=== PATIENT | male | born 1955 | race Caucasian/White ===

== ENCOUNTER → 2021-04-02 | Outpatient (CLI) | payer MEDICARE ==
--- NOTE | 2021-04-02 13:37 | MR ---
EXAMINATION TYPE: MR brain wo con DATE OF EXAM: 04/02/2021 1:13 PM COMPARISON: NONE HISTORY: CVA frontal lobe, memory loss, mild dementia FINDINGS: The ventricles, basal cisterns and sulci overlying the cerebral convexities are mildly enlarged. There is evidence of mild periventricular white matter ischemic demyelination. Remote deep white matter insults are also noted. No acute edema is seen on diffusion weighted imaging. There is no evidence for midline shift or mass effect. Acute intracranial hemorrhage or extra-axial collection is not evident. The paranasal sinuses and mastoid air cells are well-aerated. IMPRESSION: Age-related atrophic and chronic small vessel ischemic change. No acute intracranial process at this time.
== END | disposition home or self-care (01) ==
LOC: RADMRIMAIN 11:41
PROVIDERS: ATTEND Psychiatry & Neurology Neurology
DX: I67.82 Cerebral ischemia (principal); G31.9 Degenerative disease of nervous system, unspecified; Z86.73 Personal history of transient ischemic attack (TIA), and cerebral infarction without residual deficits
CPT/HCPCS: 70551

== ENCOUNTER 2022-08-12 15:58 | Inpatient (IN) | payer MEDICARE ==
[2022-08-12] MEDS ORDERED: ACETAMINOPHEN TAB 500 MG TAB PO STA (17:35)
[2022-08-12] MEDS ORDERED: IBUPROFEN 600 MG TAB PO STA (17:35)
--- NOTE | 2022-08-12 18:02 | ED ---
General Adult HPI - General Chief complaint: Altered Mental Status Stated complaint: general malaise Time Seen by Provider: 08/12/22 16:20 Source: patient, EMS, RN notes reviewed, old records reviewed Mode of arrival: EMS Limitations: no limitations - History of Present Illness Initial comments: This is a 66-year-old male with a past medical history significant for Parkinson's disease. Patient recently had some sort of urological procedure secondary to having bladder cancer. He is unable to tell me and there is nobody with the patient to give me any further information. Patient was sent in today because he wasn't feeling well and he was feeling weak and tired. Patient had a fever on arrival. Patient denies any chest pain difficulty breathing or shortness of breath per patient denies any cough. Patient denies abdominal pain patient denies nausea vomiting diarrhea. Patient has no complaint of dysuria hematuria urinary frequency. After a little while to the and though she seemed to be poor historian she did indicate that the patient had a syncopal episode at some point time. - Related Data Home Medications Medication Instructions Recorded Confirmed Levothyroxine Sodium [Synthroid] 75 mcg PO AC-BRKFST 08/12/22 08/12/22 Oxybutynin Chloride [Ditropan XL] 10 mg PO DAILY 08/12/22 08/12/22 Propranolol [Inderal] 40 mg PO BID 08/12/22 08/12/22 Simvastatin [Zocor] 40 mg PO HS 08/12/22 08/12/22 Tamsulosin HCl [Flomax] 0.4 mg PO HS 08/12/22 08/12/22 Trihexyphenidyl [Artane] 2 mg PO BID 08/12/22 08/12/22 Valbenazine Tosylate [Ingrezza] 40 mg PO DAILY 08/12/22 08/12/22 traMADol HCL 50 mg PO BID PRN 08/12/22 08/12/22 Allergies Allergy/AdvReac Type Severity Reaction Status Date / Time quetiapine fumarate AdvReac Confusion Verified 08/12/22 19:00 [From Seroquel] Review of Systems ROS Statement: Those systems with pertinent positive or pertinent negative responses have been documented in the HPI. ROS Other: All systems not noted in ROS Statement are negative. Past Medical History Past Medical History: Cancer, Hypertension, Osteoarthritis (OA), Thyroid Disorder Additional Past Medical History / Comment(s): familial tremors; Traumatic Brain Injury with chronic headaches, tinnitus, difficulty with balance and concentration; Suicide Attempt, PROSTATE CANCER History of Any Multi-Drug Resistant Organisms: None Reported Past Surgical History: Appendectomy, Hernia Repair, Orthopedic Surgery, Tonsillectomy Additional Past Surgical History / Comment(s): Vasectomy Past Anesthesia/Blood Transfusion Reactions: No Reported Reaction Past Psychological History: Anxiety, Bipolar, Depression Smoking Status: Never smoker Past Alcohol Use History: None Reported Past Drug Use History: None Reported - Past Family History Mother Family Medical History: Cancer Additional Family Medical History / Comment(s): bladder, suicide attempt. She at age 67 Father Family Medical History: CVA/TIA, Diabetes Mellitus, Hypertension Additional Family Medical History / Comment(s): stroke Brother(s) Additional Family Medical History / Comment(s): Patient has one brother with history of alcohol abuse. He has 1 brother that is from alcohol abuse. And one brother hung himself. Sister(s) Additional Family Medical History / Comment(s): He has 5 sisters. One sister with coronary artery disease. One or 2 have attempted suicide. Daughter(s) Additional Family Medical History / Comment(s): One daughter with bipolar disorder she is 30 years old. Son(s) Additional Family Medical History / Comment(s): One son that is 28 years old with bipolar disorder. General Exam - General Exam Comments Initial Comments: GENERAL: Patient is well-developed and well-nourished. Patient is nontoxic and well- hydrated and is in mild distress. ENT: Neck is soft and supple. No significant lymphadenopathy is noted. Oropharynx is clear. Moist mucous membranes. Neck has full range of motion without eliciting any pain. EYES: The sclera were anicteric and conjunctiva were pink and moist. Extraocular movements were intact and pupils were equal round and reactive to light. Eyelids were unremarkable. PULMONARY: Unlabored respirations. Good breath sounds bilaterally. No audible rales rh onchi or wheezing was noted. CARDIOVASCULAR: There is a regular rate and rhythm without any murmurs gallops or rubs. ABDOMEN: Soft and nontender with normal bowel sounds. SKIN: Skin is clear with no lesions or rashes and otherwise unremarkable. NEUROLOGIC: Patient is alert and oriented 2. Cranial nerves II through XII are grossly intact. Motor and sensory are also intact. Normal speech, volume and content. Symmetrical smile. MUSCULOSKELETAL: Normal extremities with adequate strength and full range of motion. No lower extremity swelling or edema. No calf tenderness. LYMPHATICS: No significant lymphadenopathy is noted PSYCHIATRIC: Normal psychiatric evaluation. Limitations: no limitations Course Vital Signs 08/12/22 08/12/22 08/12/22 16:20 16:25 16:30 Temperature 100.7 F H Pulse Rate 64 60 Respiratory 20 25 H 25 H Rate Blood Pressure 128/95 O2 Sat by Pulse 96 96 Oximetry 08/12/22 08/12/22 08/12/22 17:00 17:30 18:00 Temperature Pulse Rate 62 71 60 Respiratory 24 18 24 Rate Blood Pressure 125/108 117/68 97/70 O2 Sat by Pulse 96 98 96 Oximetry 08/12/22 08/12/22 08/12/22 18:30 19:00 19:30 Temperature Pulse Rate 55 L 55 L 57 L Respiratory 24 19 21 Rate Blood Pressure 114/73 112/82 115/86 O2 Sat by Pulse 96 97 97 Oximetry 08/12/22 20:00 Temperature 99.2 F Pulse Rate 60 Respiratory 19 Rate Blood Pressure 121/67 O2 Sat by Pulse 95 Oximetry Medical Decision Making - Medical Decision Making EKG was interpreted by myself EKG shows a sinus rhythm at 64 bpm UT interval 262 QRS is 89 QT interval 460 QTC is 416. EKG shows no ST segment elevation or depression Was pt. sent in by a medical professional or institution (, PA, BOX PRESS OPERATOR, urgent care, hospital, or penitentiary...) When possible be specific @ -No Did you speak to anyone other than the patient for history (EMS, parent, family, police, friend...)? What history was obtained from this source @ -History part of the history Did you review nursing and triage notes (agree or disagree)? Why? @ -I reviewed and agree with nursing and triage notes Were old charts reviewed (outside hosp., previous admission, EMS record, old EKG, old radiological studies, urgent care reports/EKG's, penitentiary records)? Report findings @ -I reviewed prior labs and charts. Differential Diagnosis (chest pain, altered mental status, abdominal pain women, abdominal pain men, vaginal bleeding, weakness, fever, dyspnea, syncope, headache, dizziness, GI bleed, back pain, seizure, CVA, palpatations, mental health, musculoskeletal)? @ -Differential Fever: Pneumonia, viral URI, endocarditis, myocarditis, pericarditis, otitis, sinusitis, peritonsillar Abscess, retropharyngeal Abscess, epiglottitis, p eritonitis, appendicitis, Connie cystitis, diverticulitis, hepatitis, colitis, UTI, PID, TOA, pyelonephritis, prostatitis, epididymitis, meningitis, encephalitis, pulmonary embolism, CVA, thyroid storm, pancreatitis, adrenal crisis, cavernous sinus thrombosis, this is not meant to be an all-inclusive list. EKG interpreted by me (3pts min.). @ -As above X-rays interpreted by me (1pt min.). @ -Chest x-rays interpreted by myself as no acute abnormality. CT interpreted by me (1pt min.). @ -None done U/S interpreted by me (1pt. min.). @ -None done What testing was considered but not performed or refused? (CT, X-rays, U/S, labs)? Why? @ -None What meds were considered but not given or refused? Why? @ -None Did you discuss the management of the patient with other professionals (professionals i.e. , PA, BOX PRESS OPERATOR, lab, RT, psych nurse, social and political studies professor, box lining machine operator, teacher, seaman officer, immigration case manager)? Give summary @ -Poke with Dr. Alfred about the case and he agreed to admit the patient Was smoking cessation discussed for >3mins.? @ -No Was critical care preformed (if so, how long)? @ -No Were there social determinants of health that impacted care today? How? (Homelessness, low income, unemployed, alcoholism, drug addiction, transportation, low edu. Level, literacy, decrease access to med. care, long-term, rehab)? @ -No Was there de-escalation of care discussed even if they declined (Discuss DNR or withdrawal of care, Hospice)? DNR status @ -No What co-morbidities impacted this encounter? (DM, HTN, Smoking, COPD, CAD, Cancer, CVA, ARF, Chemo, Hep., AIDS, mental health diagnosis, sleep apnea, morbid obesity)? @ -None Was patient admitted / discharged? Hospital course, mention meds given and route, prescriptions, significant lab abnormalities, going to OR and other pertinent info. @ -On patient's arrival he stated he just felt weak his mentioned that he may have had an episode of syncope needs were very good historian and there was no one else gets any further history. Patient gave Motrin, for the fever. Patient appeared to have some white cells in the urine Undiagnosed new problem with uncertain prognosis? @ -No Drug Therapy requiring intensive monitoring for toxicity (Heparin, Nitro, Insulin, Cardizem)? @ -No Were any procedures done? @ -No Diagnosis/symptom? @ -Syncope Acute, or Chronic, or Acute on Chronic? @ -Acute Uncomplicated (without systemic symptoms) or Complicated (systemic symptoms)? @ -Complicated Side effects of treatment? @ -No Exacerbation, Progression, or Severe Exacerbation? @ -No Poses a threat to life or bodily function? How? (Chest pain, [place], CA, pneumonia, PE, COPD, DKA, ARF, appy, cholecystitis, CVA, Diverticulitis, Homicidal, Suicidal, threat to staff... and all critical care pts) @ -No Diagnosis/symptom? @ -Urinary tract infection Acute, or Chronic, or Acute on Chronic? @ -Acute Uncomplicated (without systemic symptoms) or Complicated (systemic symptoms)? @ -Complicated Side effects of treatment? @ -none Exacerbation, Progression, or Severe Exacerbation] @ -no Poses a threat to life or bodily function? @ -no - Lab Data Result diagrams: 08/12/22 18:12 08/12/22 18:12 Lab Results 08/12/22 08/12/22 08/12/22 Range/Units 18:12 18:12 18:12 WBC 8.5 (3.8-10.6) k/uL RBC 5.02 (4.30-5.90) m/uL Hgb 15.6 (13.0-17.5) gm/dL Hct 43.2 (39.0-53.0) % MCV 86.1 (80.0-100.0) fL MCH 31.1 (25.0-35.0) pg MCHC 36.0 (31.0-37.0) g/dL RDW 13.5 (11.5-15.5) % Plt Count 119 L (150-450) k/uL MPV 7.8 Neutrophils % 78 % Lymphocytes % 8 % Monocytes % 8 % Eosinophils % 4 % Basophils % 0 % Neutrophils # 6.5 (1.3-7.7) k/uL Lymphocytes # 0.6 L (1.0-4.8) k/uL Monocytes # 0.7 (0-1.0) k/uL Eosinophils # 0.4 (0-0.7) k/uL Basophils # 0.0 (0-0.2) k/uL Hyperchromasia Slight PT 11.2 (9.0-12.0) sec INR 1.1 (<1.2) APTT 20.1 L (22.0-30.0) sec Sodium (137-145) mmol/L Potassium (3.5-5.1) mmol/L Chloride (98-107) mmol/L Carbon Dioxide (22-30) mmol/L Anion Gap mmol/L BUN (9-20) mg/dL Creatinine (0.66-1.25) mg/dL Est GFR (CKD-EPI)AfAm (>60 ml/min/1.73 sqM) Est GFR (CKD-EPI)NonAf (>60 ml/min/1.73 sqM) Glucose (74-99) mg/dL Plasma Lactic Acid Marc (0.7-2.0) mmol/L Calcium (8.4-10.2) mg/dL Total Bilirubin (0.2-1.3) mg/dL AST (17-59) U/L ALT (4-49) U/L Alkaline Phosphatase (38-126) U/L Total Protein (6.3-8.2) g/dL Albumin (3.5-5.0) g/dL Urine Color Yellow Urine Appearance Clear (Clear) Urine pH 5.5 (5.0-8.0) Ur Specific Coy 1.023 (1.001-1.035) Urine Protein 1+ H (Negative) Urine Glucose (UA) Negative (Negative) Urine Ketones Trace H (Negative) Urine Blood Small H (Negative) Urine Nitrite Negative (Negative) Urine Bilirubin Negative (Negative) Urine Urobilinogen <2.0 (<2.0) mg/dL Ur Leukocyte Esterase Moderate H (Negative) Urine RBC 20 H (0-5) /hpf Urine WBC 23 H (0-5) /hpf Ur Squamous Epith Cells <1 (0-4) /hpf Urine Bacteria Rare H (None) /hpf Hyaline Casts 1 (0-2) /lpf Urine Mucus Many H (None) /hpf Influenza Type A (PCR) (Not Detectd) Influenza Type B (PCR) (Not Detectd) RSV (PCR) (Not Detectd) SARS-CoV-2 (PCR) (Not Detectd) 08/12/22 08/12/22 08/12/22 Range/Units 18:12 18:12 19:39 WBC (3.8-10.6) k/uL RBC (4.30-5.90) m/uL Hgb (13.0-17.5) gm/dL Hct (39.0-53.0) % MCV (80.0-100.0) fL MCH (25.0-35.0) pg MCHC (31.0-37.0) g/dL RDW (11.5-15.5) % Plt Count (150-450) k/uL MPV Neutrophils % % Lymphocytes % % Monocytes % % Eosinophils % % Basophils % % Neutrophils # (1.3-7.7) k/uL Lymphocytes # (1.0-4.8) k/uL Monocytes # (0-1.0) k/uL Eosinophils # (0-0.7) k/uL Basophils # (0-0.2) k/uL Hyperchromasia PT (9.0-12.0) sec INR (<1.2) APTT (22.0-30.0) sec Sodium 136 L (137-145) mmol/L Potassium 3.9 (3.5-5.1) mmol/L Chloride 106 (98-107) mmol/L Carbon Dioxide 24 (22-30) mmol/L Anion Gap 6 mmol/L BUN 18 (9-20) mg/dL Creatinine 0.99 (0.66-1.25) mg/dL Est GFR (CKD-EPI)AfAm >90 (>60 ml/min/1.73 sqM) Est GFR (CKD-EPI)NonAf 78 (>60 ml/min/1.73 sqM) Glucose 114 H (74-99) mg/dL Plasma Lactic Acid Marc 0.9 (0.7-2.0) mmol/L Calcium 8.1 L (8.4-10.2) mg/dL Total Bilirubin 2.6 H (0.2-1.3) mg/dL AST 17 (17-59) U/L ALT 24 (4-49) U/L Alkaline Phosphatase 87 (38-126) U/L Total Protein 5.8 L (6.3-8.2) g/dL Albumin 3.4 L (3.5-5.0) g/dL Urine Color Urine Appearance (Clear) Urine pH (5.0-8.0) Ur Specific Coy (1.001-1.035) Urine Protein (Negative) Urine Glucose (UA) (Negative) Urine Ketones (Negative) Urine Blood (Negative) Urine Nitrite (Negative) Urine Bilirubin (Negative) Urine Urobilinogen (<2.0) mg/dL Ur Leukocyte Esterase (Negative) Urine RBC (0-5) /hpf Urine WBC (0-5) /hpf Ur Squamous Epith Cells (0-4) /hpf Urine Bacteria (None) /hpf Hyaline Casts (0-2) /lpf Urine Mucus (None) /hpf Influenza Type A (PCR) Not Detected (Not Detectd) Influenza Type B (PCR) Not Detected (Not Detectd) RSV (PCR) Not Detected (Not Detectd) SARS-CoV-2 (PCR) Not Detected (Not Detectd) Disposition Clinical Impression: Syncope, Urinary tract infection Disposition: ADMITTED IP TO THIS [facility] Referrals: Cuauhtemoc Harmon MD [Primary Care Provider] - 1-2 days Time of Disposition: 20:55
[2022-08-12 18:27] LABS: Appearance,Urine Clear (Clear); Bacteria,Urine Rare /hpf; Bilirubin,Urine Negative (Negative); Blood,Urine Small (Negative); Color,Urine Yellow; Glucose,Urine (UA) Negative (Negative); Hyaline Casts,Urine 1 /lpf (0-2); Ketones,Urine Trace (Negative); Leukocyte Esterase,Urine Moderate (Negative); Mucus,Urine Many /hpf; Nitrite,Urine Negative (Negative); PH, Urine 5.5 (5.0-8.0); Protein,Urine 1+ (Negative); RBC,Urine 20 /hpf (0-5); Specific Gravity,Urine 1.023 (1.001-1.035); Squamous Epithelial Cell,Urine <1 /hpf (0-4); Urobilinogen,Urine <2.0 mg/dL (<2.0); WBC,Urine 23 /hpf (0-5)
[2022-08-12 18:34] LABS: ALT 24 U/L (4-49); AST 17 U/L (17-59); African American GFR (CKD) >90 (>60 ml/min/1.73 sqM); Albumin 3.4 g/dL (3.5-5.0); Alkaline Phosphatase 87 U/L (38-126); Anion Gap 6 mmol/L; Basophils % (A) 0 %; Blood Urea Nitrogen 18 mg/dL (9-20); Calcium 8.1 mg/dL (8.4-10.2); Carbon Dioxide 24 mmol/L (22-30); Chloride 106 mmol/L (98-107); Eosinophils # (A) 0.4 k/uL (0-0.7); Eosinophils % (A) 4 %; Glucose 114 mg/dL (74-99); HCT 43.2 % (39.0-53.0); HGB 15.6 gm/dL (13.0-17.5); Hyperchromasia Slight; Lymphocytes # (A) 0.6 k/uL (1.0-4.8); Lymphocytes % (A) 8 %; MCH 31.1 pg (25.0-35.0); MCV 86.1 fL (80.0-100.0); Mean Platelet Volume 7.8; Monocytes # (A) 0.7 k/uL (0-1.0); Monocytes % (A) 8 %; Neutrophils # (A) 6.5 k/uL (1.3-7.7); Neutrophils % (A) 78 %; Non-African American GFR(CKD) 78 (>60 ml/min/1.73 sqM); Platelet Count 119 k/uL (150-450); Potassium 3.9 mmol/L (3.5-5.1); RBC 5.02 m/uL (4.30-5.90); RDW 13.5 % (11.5-15.5); Sodium 136 mmol/L (137-145); Total Bilirubin 2.6 mg/dL (0.2-1.3); Total Protein 5.8 g/dL (6.3-8.2); WBC 8.5 k/uL (3.8-10.6)
[2022-08-12 18:36] LABS: INR 1.1 (<1.2); Prothrombin Time 11.2 sec (9.0-12.0)
[2022-08-12 18:39] LABS: Partial Thromboplastin Time 20.1 sec (22.0-30.0)
--- NOTE | 2022-08-12 19:33 | XR ---
EXAMINATION: XR chest 2V: 08/12/2022 6:27 PM CLINICAL INDICATION: Fever TECHNIQUE: 3 views COMPARISON: Made to 10 FINDINGS: The lungs are clear. The pleural spaces are negative. The cardiac silhouette is not enlarged. The remainder of the mediastinal silhouette is unremarkable. The skeletal structures and soft tissues are negative for acute findings. IMPRESSION: No acute radiographic process.
[2022-08-12] MEDS: SODIUM CHLORIDE 0.9% 500 ML 500 ML IV SCH ×3 (19:57→23:08)
[2022-08-12] MEDS ORDERED: SODIUM CHLORIDE 0.9% 1,000 ML IV ONE (20:58)
[2022-08-13] MEDS ORDERED: traMADol 50 MG TAB PO PRN (09:16)
[2022-08-13] MEDS: Valbenazine Tosylate [Ingrezza] 40 MG Capsule PO SCH (09:28)
[2022-08-13] MEDS: PROPRANOLOL 40 MG TAB PO SCH ×2 (09:39→19:36)
[2022-08-13] MEDS: LEVOTHYROXINE 75 MCG TAB PO SCH (09:42)
[2022-08-13] MEDS: OXYBUTYNIN 10 MG TAB.ER.24 PO SCH (09:43)
[2022-08-13] MEDS: TRIHEXYPHENIDYL 2 MG TAB PO SCH ×2 (09:43→19:59)
--- NOTE | 2022-08-13 11:57 | P.CNNES ---
History of Present Illness Consult date: 08/13/22 Requesting physician: Dawit Lott Reason for Consult: syncope History of Present Illness: This is a 66-year-old gentleman with history of Parkinson's who presented to the emergency department because of passing out episode. Patient does not recall the event and does not know what transpired. He denies any bowel incontinence or tongue bite. Per the ED team is seems the patient had some sort of urological procedures admitted to having bladder cancer according to ED note. He also felt the patient is a poor historian. He indicated to them that he passed out after some time. He denies any history of seizure. He states that he follows up with a neurologist Dr. English campbell at [facility] for his Parkinson's and he said that he was a had significant tremor for the past 1 year and he thinks he had the tremor for more than a year but unsure exactly. He cannot tell me the medication that he is on for the Parkinson's and upon reviewing the EMR is the only thing I can see is that he is on propanolol and I'm not sure if it's because of his blood pressure or they felt was a tremor essential. It does not seem he is on Sinemet and patient is not aware if he was on it in past or not. According to the patient's nurse his heart rate has been in the 30s. So she is holding the propanolol Some of the workup during his hospital visit consisted of: Heart Rate has been running between the 30s and 40s White blood cell has been within the normal limits. AST ALT is within normal limits as well as BUN/creatinine. The sodium was 136, serum glucose 114. Urinalysis is seems possible suggestive of underlying urinary tract infection EKG is reported as sinus rhythm with sinus arrhythmia. Normal EKG. Review of Systems Review of system: The 12 point system was reviewed and apparent positive and negative per HPI. Past Medical History Past Medical History: Cancer, Hypertension, Osteoarthritis (OA), Thyroid Disorder Additional Past Medical History / Comment(s): familial tremors; Traumatic Brain Injury with chronic headaches, tinnitus, difficulty with balance and concentration; Suicide Attempt, PROSTATE CANCER History of Any Multi-Drug Resistant Organisms: None Reported Past Surgical History: Appendectomy, Hernia Repair, Orthopedic Surgery, T onsillectomy Additional Past Surgical History / Comment(s): Vasectomy Past Anesthesia/Blood Transfusion Reactions: No Reported Reaction Past Psychological History: Anxiety, Bipolar, Depression Smoking Status: Never smoker Past Alcohol Use History: None Reported Past Drug Use History: None Reported - Past Family History Mother Family Medical History: Cancer Additional Family Medical History / Comment(s): bladder, suicide attempt. She at age 67 Father Family Medical History: CVA/TIA, Diabetes Mellitus, Hypertension Additional Family Medical History / Comment(s): stroke Brother(s) Additional Family Medical History / Comment(s): Patient has one brother with history of alcohol abuse. He has 1 brother that is from alcohol abuse. And one brother hung himself. Sister(s) Additional Family Medical History / Comment(s): He has 5 sisters. One sister with coronary artery disease. One or 2 have attempted suicide. Daughter(s) Additional Family Medical History / Comment(s): One daughter with bipolar disord er she is 30 years old. Son(s) Additional Family Medical History / Comment(s): One son that is 28 years old with bipolar disorder. Medications and Allergies Home Medications Medication Instructions Recorded Confirmed Type Levothyroxine Sodium [Synthroid] 75 mcg PO AC-BRKFST 08/12/22 08/12/22 History Oxybutynin Chloride [Ditropan XL] 10 mg PO DAILY 08/12/22 08/12/22 History Propranolol [Inderal] 40 mg PO BID 08/12/22 08/12/22 History Simvastatin [Zocor] 40 mg PO HS 08/12/22 08/12/22 History Tamsulosin HCl [Flomax] 0.4 mg PO HS 08/12/22 08/12/22 History Trihexyphenidyl [Artane] 2 mg PO BID 08/12/22 08/12/22 History Valbenazine Tosylate [Ingrezza] 40 mg PO DAILY 08/12/22 08/12/22 History traMADol HCL 50 mg PO BID PRN 08/12/22 08/12/22 History Allergies Allergy/AdvReac Type Severity Reaction Status Date / Time quetiapine fumarate AdvReac Confusion Verified 08/12/22 19:00 [From Seroquel] Physical Examination - Vital Signs Vital Signs: Vital Signs Temp Pulse Pulse Resp BP BP Pulse Ox 08/13/22 09:30 35 L 123/69 08/13/22 08:00 96.8 F L 40 L 16 79/60 98 08/13/22 03:48 41 L 18 121/63 96 08/13/22 00:00 97.6 F 43 L 16 125/103 98 08/12/22 20:00 99.2 F 60 19 121/67 95 08/12/22 19:30 57 L 21 115/86 97 08/12/22 19:00 55 L 19 112/82 97 08/12/22 18:30 55 L 24 114/73 96 08/12/22 18:00 60 24 97/70 96 08/12/22 17:30 71 18 117/68 98 08/12/22 17:00 62 24 125/108 96 08/12/22 16:30 60 25 H 128/95 96 08/12/22 16:25 25 H 08/12/22 16:20 100.7 F H 64 20 96 Intake and Output 08/12/22 08/13/22 08/13/22 22:59 06:59 14:59 Intake Total 50 Output Total 500 250 Balance -500 -200 Intake: Intake, IV Titration 50 Amount cefTRIAXone 2 gm In 50 Sodium Chloride 0.9% 50 ml @ 100 mls/hr IVPB Q24HR [facility] Rx#:[id number] Output: Urine 500 250 Other: Voiding Method Urinal Urinal # Voids 1 Weight 85.729 kg GENERAL: The patient is lying in bed and is not in acute distress. CHEST: The heart rate is regular rate rhythm. No murmurs to auscultation. LUNG: Clear to auscultation bilaterally no wheezing noted throughout. Not labored breathing. ABDOMEN/GI: Bowel sounds present in all 4 quadrants. No tenderness to palpation throughout. NEUROLOGICAL: Higher mental function: The patient is awake, alert, oriented to self, place and time. Patient is following commands. No aphasia and no neglect. Cranial nerves: The pupils are round, equal and reactive to light and accommodation. Visual kirby are full to confrontation throughout. Extraocular movement is intact no nystagmus is noted. Facial sensation is normal to touch throughout. The facial strength is normal throughout. Hearing is normal bilaterally to hand rub. Tongue is midline and moved [id number] without any difficulty. No dysarthria is noted. Shoulder shrug is normal bilaterally. Motor: The strength is 5 over 5 throughout. Has resting tremor of bilateral uppers. Cerebellum: Normal finger to nose heel to chin bilaterally. Sensation: Sensation is normal to touch throughout. Reflexes (right/left): 1+ throughout. Plantars are mute bilaterally. Results - Laboratory Findings CBC and BMP: 08/12/22 18:12 08/12/22 18:12 Abnormal Lab Findings: Abnormal Labs 08/12/22 08/12/22 08/12/22 18:12 18:12 18:12 Plt Count 119 L Lymphocytes # 0.6 L APTT 20.1 L Sodium Glucose Calcium Total Bilirubin Total Protein Albumin Urine Protein 1+ H Urine Ketones Trace H Urine Blood Small H Ur Leukocyte Esterase Moderate H Urine RBC 20 H Urine WBC 23 H Urine Bacteria Rare H Urine Mucus Many H 08/12/22 18:12 Plt Count Lymphocytes # APTT Sodium 136 L Glucose 114 H Calcium 8.1 L Total Bilirubin 2.6 H Total Protein 5.8 L Albumin 3.4 L Urine Protein Urine Ketones Urine Blood Ur Leukocyte Esterase Urine RBC Urine WBC Urine Bacteria Urine Mucus Assessment and Plan Assessment: Syncopal episode (reported to ED) and appears due to medication induced cause b radycardia (in 30's). Is on Propranolol. Parkinson's disease Possible acute UTI History prostate cancer History of bladder cancer who had recent procedure Plan: I ordered a CT of the brain, routine EEG, orthostatic vitals.. Also ordered 2D echo. Agree of holding Propranolol and consider cardiology consult. I am not sure why patient is not on Sinemet or other medication for Parkinson's. I will attempt to find this out from patient's family members. Consulted the physical therapy and occupation therapy Defer the rest of the medical management to primary team Plan discussed with the patient nurse Thank you for the consultation Time with Patient: Greater than 30
--- NOTE | 2022-08-13 12:15 | CT ---
EXAMINATION TYPE: CT brain wo con CT DLP: 1159.4 mGycm, Automated exposure control for dose reduction was used. DATE OF EXAM: 08/13/2022 12:08 PM COMPARISON: CT brain 11/30/2018 CLINICAL INDICATION:Male, 66 years old with history of syncope, TECHNIQUE: Brain: Multiple axial CT images of the brain were obtained without IV contrast. Coronal and sagittal reformats reviewed. FINDINGS: Brain: Extra-axial spaces: No abnormal extra-axial fluid collections. Ventricular system: Within normal limits Cerebral parenchyma: Cerebral atrophy. No acute intraparenchymal hemorrhage or mass effect. The diop -white junction is well differentiated. Cerebellum: Unremarkable. Mass effect: No evidence of midline shift. Intracranial vasculature: unremarkable Soft tissues: Normal. Calvarium/osseous structures: No depressed skull fracture. Paranasal sinuses and mastoid air cells: Clear Visualized orbits: Orbital contents are intact. IMPRESSION: No acute intracranial process.
[2022-08-13] MEDS ORDERED: ACETAMINOPHEN TAB 500 MG TAB PO PRN (19:25)
[2022-08-13] MEDS: SODIUM CHLORIDE 0.9% 1,000 ML IV SCH (19:31)
[2022-08-13] MEDS: TAMSULOSIN 0.4 MG CAP.ER.24H PO SCH (19:59)
[2022-08-13] MEDS: ATORVASTATIN 20 MG TAB PO SCH (19:59)
--- NOTE | 2022-08-13 21:41 | P.HPIM ---
History of Present Illness H&P Date: 08/13/22 Chief Complaint: Weak and tired This is a pleasant 66-year-old patient, follows with Dr. Cuauhtemoc Harmon. Chronic stable medical conditions include hypertension, osteoporosis, hypothyroid, familial tremors, traumatic brain injury with chronic headaches, tinnitus, prostate cancer. Bipolar. Patient does not exactly remember why he is here. Please hold for to answer other questions. He can only tell in the ER that he was not feeling well. Tired. About a week ago he had cystoscopy and bladder cancer was removed. He is not sure how much. He was able to make urine on his own. Able to get around the house on his own. His appetite has been down. Feeling tired. Lives with his . Could not think of any obvious urine symptoms. He is not very clear about his answers. Review of systems: GEN.: Tired EYES: None HEENT: None NECK: None RESPIRATORY: None CARDIOVASCULAR: None GASTROINTESTINAL: None GENITOURINARY: None MUSCULOSKELETAL: None LYMPHATICS: None HEMATOLOGICAL: None PSYCHIATRY: Anxious NEUROLOGICAL: Tremors] Past medical history to include: Hypertension, osteoporosis, hypothyroid, familial tremors, traumatic brain injury with chronic headaches, tinnitus, prostate versus bladder cancer, bipolar Social history: Lives with his . No smoking or alcohol. Physical examination: VITAL SIGNS: T-max today 103, 75, 20, 120/62, 92% room air GENERAL: BMI 29.6, laying in bed slightly anxious. EYES: Pupils equal. Conjunctiva normal. HEENT: External appearance of nose and ears normal, oral cavity grossly normal. NECK: JVD not raised; masses not palpable. HEART: First and second heart sounds are normal; no edema. LUNGS: Respiratory rate normal; clear to auscultation. ABDOMEN: Soft, nontender, liver spleen not palpable, no masses palpable. PSYCH: Alert and oriented x3; mood and affect anxious, get lipidl. MUSCULOSKELETAL:No Clubbing/cyanosis;muscles-grossly intact NEUROLOGICAL: Cranial nerves grossly intact; no facial asymmetry, power and sensation grossly intact. Tremors LYMPHATICS: No lymph nodes palpable in the axilla and neck INVESTIGATIONS, reviewed in the clinical context: White count 8.5 hemoglobin 15.6 platelets 119 sodium 136 potassium 3.9 creatinine 0.99 lactic acid 0.9 UA: [place] as moderate, WBC 23, bacteria rare Influenza type [id number]-19: Noninjected CT brain: Atrophy EKG tracing personally reviewed by me-normal sinus rhythm Chest x-ray film personally reviewed by me-no infiltrates Assessment and plan: -Sepsis from underlying UTI causing delirium, high fever. Patient had a cystoscopy about a week ago. IV ceftriaxone. Urine culture ordered. Blood culture pending. -Acute UTI with cystitis causing sepsis from recent cystoscopy IV ceftriaxone -Familial tremor Propranolol 40 mg twice a day -BPH Flomax, Ditropan XL -Acute delirium from sepsis on presentation -Hypothyroid Synthroid 75 -Hyperlipidemia Zocor 40 mg -DO NOT RESUSCITATE Discussed with patient. No family at the bedside. - Past Medical History Past Medical History: Cancer, Hypertension, Osteoarthritis (OA), Thyroid Disorder Additional Past Medical History / Comment(s): familial tremors; Traumatic Brain Injury with chronic headaches, tinnitus, difficulty with balance and concentration; Suicide Attempt, PROSTATE CANCER History of Any Multi-Drug Resistant Organisms: None Reported Past Surgical History: Appendectomy, Hernia Repair, Orthopedic Surgery, Tonsillectomy Additional Past Surgical History / Comment(s): Vasectomy Past Anesthesia/Blood Transfusion Reactions: No Reported Reaction Past Psychological History: Anxiety, Bipolar, Depression Smoking Status: Never smoker Past Alcohol Use History: None Reported Past Drug Use History: None Reported - Past Family History Mother Family Medical History: Cancer Additional Family Medical History / Comment(s): bladder, suicide attempt. She at age 67 Father Family Medical History: CVA/TIA, Diabetes Mellitus, Hypertension Additional Family Medical History / Comment(s): stroke Brother(s) Additional Family Medical History / Comment(s): Patient has one brother with history of alcohol abuse. He has 1 brother that is from alcohol abuse. And one brother hung himself. Sister(s) Additional Family Medical History / Comment(s): He has 5 sisters. One sister with coronary artery disease. One or 2 have attempted suicide. Daughter(s) Additional Family Medical History / Comment(s): One daughter with bipolar disorder she is 30 years old. Son(s) Additional Family Medical History / Comment(s): One son that is 28 years old wit h bipolar disorder. Medications and Allergies Home Medications Medication Instructions Recorded Confirmed Type Levothyroxine Sodium [Synthroid] 75 mcg PO AC-BRKFST 08/12/22 08/12/22 History Oxybutynin Chloride [Ditropan XL] 10 mg PO DAILY 08/12/22 08/12/22 History Propranolol [Inderal] 40 mg PO BID 08/12/22 08/12/22 History Simvastatin [Zocor] 40 mg PO HS 08/12/22 08/12/22 History Tamsulosin HCl [Flomax] 0.4 mg PO HS 08/12/22 08/12/22 History Trihexyphenidyl [Artane] 2 mg PO BID 08/12/22 08/12/22 History Valbenazine Tosylate [Ingrezza] 40 mg PO DAILY 08/12/22 08/12/22 History traMADol HCL 50 mg PO BID PRN 08/12/22 08/12/22 History Allergies Allergy/AdvReac Type Severity Reaction Status Date / Time quetiapine fumarate AdvReac Confusion Verified 08/12/22 19:00 [From Seroquel] Physical Exam Vitals: Vital Signs Temp Pulse Pulse Resp BP BP Pulse Ox 08/13/22 03:48 41 L 18 121/63 96 08/13/22 00:00 97.6 F 43 L 16 125/103 98 08/12/22 20:00 99.2 F 60 19 121/67 95 08/12/22 19:30 57 L 21 115/86 97 08/12/22 19:00 55 L 19 112/82 97 08/12/22 18:30 55 L 24 114/73 96 08/12/22 18:00 60 24 97/70 96 08/12/22 17:30 71 18 117/68 98 08/12/22 17:00 62 24 125/108 96 08/12/22 16:30 60 25 H 128/95 96 08/12/22 16:25 25 H 08/12/22 16:20 100.7 F H 64 20 96 Intake and Output 08/12/22 08/13/22 08/13/22 22:59 06:59 14:59 Output Total 500 Balance -500 Output: Urine 500 Other: Voiding Method Urinal Weight 85.729 kg Results CBC & Chem 7: 08/12/22 18:12 08/12/22 18:12 Labs: Abnormal Lab Results - Last 24 Hours (Table) 08/12/22 08/12/22 08/12/22 Range/Units 18:12 18:12 18:12 Plt Count 119 L (150-450) k/uL Lymphocytes # 0.6 L (1.0-4.8) k/uL APTT 20.1 L (22.0-30.0) sec Sodium (137-145) mmol/L Glucose (74-99) mg/dL Calcium (8.4-10.2) mg/dL Total Bilirubin (0.2-1.3) mg/dL Total Protein (6.3-8.2) g/dL Albumin (3.5-5.0) g/dL Urine Protein 1+ H (Negative) Urine Ketones Trace H (Negative) Urine Blood Small H (Negative) Ur Leukocyte Esterase Moderate H (Negative) Urine RBC 20 H (0-5) /hpf Urine WBC 23 H (0-5) /hpf Urine Bacteria Rare H (None) /hpf Urine Mucus Many H (None) /hpf 08/12/22 Range/Units 18:12 Plt Count (150-450) k/uL Lymphocytes # (1.0-4.8) k/uL APTT (22.0-30.0) sec Sodium 136 L (137-145) mmol/L Glucose 114 H (74-99) mg/dL Calcium 8.1 L (8.4-10.2) mg/dL Total Bilirubin 2.6 H (0.2-1.3) mg/dL Total Protein 5.8 L (6.3-8.2) g/dL Albumin 3.4 L (3.5-5.0) g/dL Urine Protein (Negative) Urine Ketones (Negative) Urine Blood (Negative) Ur Leukocyte Esterase (Negative) Urine RBC (0-5) /hpf Urine WBC (0-5) /hpf Urine Bacteria (None) /hpf Urine Mucus (None) /hpf
--- NOTE | 2022-08-13 22:56 | EEG ---
ELECTROENCEPHALOGRAM REPORT CLINICAL HISTORY: This is a 66-year-old gentleman with a syncopal episode at home. The video EEG is obtained to evaluate for seizure epileptiform activity. RELEVANT MEDICATIONS: The patient is not on any anti-seizure medication. EEG TYPE: This is a routine 21-channel EEG is performed with video using the 10/20 electrode placement system. DESCRIPTION: Wakefulness is only obtained. During awake state, the posterior-dominant rhythm consists of [id number] voltage of 7-8 hertz activity that is well modulated and well sustained. There is no physiological stage 2 sleep architecture. There is no focal slowing. Interictal and ictal is none. ACTIVATION PROCEDURE: Photic stimulation did not evoke a posterior driving response. There is no abnormality during the photic stimulation. Hyperventilation is not performed. CLINICAL INTERPRETATION: This is an abnormal routine EEG. The background slowing is suggestive of mild encephalopathy. Otherwise, there is no focal slowing, epileptiform discharge, or seizure on the EEG. Clinical correlation is recommended. MMYASIR / BETHN: [id number] /
[2022-08-13 23:59] LABS: Appearance,Urine Clear (Clear); Bacteria,Urine Rare /hpf; Bilirubin,Urine Negative (Negative); Blood,Urine Trace (Negative); Color,Urine Light Yellow; Glucose,Urine (UA) Negative (Negative); Ketones,Urine Negative (Negative); Leukocyte Esterase,Urine Trace (Negative); Nitrite,Urine Negative (Negative); PH, Urine 5.5 (5.0-8.0); Protein,Urine Negative (Negative); RBC,Urine 1 /hpf (0-5); Specific Gravity,Urine 1.007 (1.001-1.035); Urobilinogen,Urine <2.0 mg/dL (<2.0); WBC,Urine 3 /hpf (0-5)
[2022-08-14] MEDS: LEVOTHYROXINE 75 MCG TAB PO SCH (06:23)
[2022-08-14] MEDS: SODIUM CHLORIDE 0.9% 1,000 ML IV SCH ×3 (06:23→20:12)
[2022-08-14] MEDS: TRIHEXYPHENIDYL 2 MG TAB PO SCH ×2 (10:20→20:10)
[2022-08-14] MEDS: OXYBUTYNIN 10 MG TAB.ER.24 PO SCH (10:20)
[2022-08-14] MEDS: PROPRANOLOL 40 MG TAB PO SCH (10:21)
[2022-08-14] MEDS: Valbenazine Tosylate [Ingrezza] 40 MG Capsule PO SCH (10:30)
--- NOTE | 2022-08-14 12:15 | P.PN ---
Subjective Progress Note Date: 08/14/22 I am seeing the patient as follow-up and feels about the same. Denies of any new neurological issues. He still could not tell me what medication he was prescribed in past for Parkinson's. Objective - Vital Signs Vital signs: Vital Signs Temp 98 F 08/14/22 10:15 Pulse 45 L 08/14/22 10:15 Resp 16 08/14/22 10:15 BP 119/64 08/14/22 10:15 Pulse Ox 96 08/14/22 10:15 FiO2 Intake & Output 08/13/22 08/14/22 08/14/22 18:59 06:59 18:59 Intake Total 590 Output Total 250 650 Balance 340 -650 Weight 85.729 kg Intake: Intake, IV Titration 50 Amount cefTRIAXone 2 gm In 50 Sodium Chloride 0.9% 50 ml @ 100 mls/hr IVPB Q24HR [facility] Rx#:[id number] Oral 540 Output: Urine 250 650 Other: Voiding Method External Catheter External Catheter External Catheter # Voids 1 300 - Exam GENERAL: The patient is lying in bed and is not in acute distress. NEUROLOGICAL: Higher mental function: The patient is awake, alert, oriented to self, place and time. Patient is following commands. No aphasia and no neglect. Cranial nerves: The pupils are round, equal and reactive to light and accommod ation. Visual kirby are full to confrontation throughout. Extraocular movement is intact no nystagmus is noted. Facial sensation is normal to touch throughout. The facial strength is normal throughout. Tongue is midline and moved [id number] without any difficulty. No dysarthria is noted. Shoulder shrug is normal bilaterally. Motor: The strength is 5 over 5 throughout. Has resting tremor of predominately right upper extremity. . Cerebellum: Normal finger to nose heel to chin bilaterally. Sensation: Sensation is normal to touch throughout. Reflexes (right/left): 1+ throughout. Plantars are mute bilaterally. Some of the workup during his hospital visit consisted of: Heart Rate has been running between the 30s and 40s White blood cell has been within the normal limits. AST ALT is within normal limits as well as BUN/creatinine. The sodium was 136, serum glucose 114. Urinalysis is seems possible suggestive of underlying urinary tract infection EKG is reported as sinus rhythm with sinus arrhythmia. Normal EKG. Routine EEG is abnormal. The background slowing is suggestive of mild encephalpathy. Otherwise, there is no focal slowing, epileptiform discharges or seizure on the EEG. - Labs CBC & Chem 7: 08/12/22 18:12 08/12/22 18:12 Labs: Abnormal Lab Results - Last 24 Hours (Table) 08/13/22 Range/Units 23:29 Urine Blood Trace H (Negative) Ur Leukocyte Esterase Trace H (Negative) Urine Bacteria Rare H (None) /hpf Microbiology - Last 24 Hours (Table) 08/12/22 18:12 Blood Culture - Preliminary Blood No Growth after 24 hours 08/12/22 18:12 Blood Culture - Preliminary Blood No Growth after 24 hours Assessment and Plan Assessment: Syncopal episode (reported to ED) and appears due to medication induced cause bradycardia (in 30's). Is on Propranolol. Parkinson's disease Possible acute UTI History prostate cancer History of bladder cancer who had recent procedure Plan: Pending 2D echo. I am not sure why patient is not on Sinemet or other medication for Parkinson's. I attempted calling the via phone but got voice message. I started the patient on Sinemet 25-100mg 1 tab tid. The primary team started on Primidone for tremor but I stopped it since this is not essential tremor and is Parkinson's tremor. Agree of holding Propranolol and consider cardiology consult. Consulted the physical therapy and occupation therapy Defer the rest of the medical management to primary team Plan discussed with the patient nurse. Time with Patient: Less than 30
[2022-08-14] MEDS: CARBIDOPA-LEVODOPA 25-100 MG 1 EACH TAB PO SCH ×3 (12:32→20:11)
[2022-08-14] MEDS: PRIMIDONE 25 MG TAB PO SCH ×2 (15:43→20:10)
--- NOTE | 2022-08-14 18:14 | P.PN ---
Progress Note - Text Progress Note Date: 08/14/22 Chief Complaint: Weak and tired This is a pleasant 66-year-old patient, follows with Dr. Cuauhtemoc Harmon. Chronic stable medical conditions include hypertension, osteoporosis, hypothyroid, familial tremors, traumatic brain injury with chronic headaches, tinnitus, prostate cancer. Bipolar. Patient does not exactly remember why he is here. Please hold for to answer other questions. He can only tell in the ER that he was not feeling well. Tired. About a week ago he had cystoscopy and bladder cancer was removed. He is not sure how much. He was able to make urine on his own. Able to get around the house on his own. His appetite has been down. Feeling tired. Lives with his . Could not think of any obvious urine symptoms. He is not very clear about his answers. August 14: Delirium mainly resolved. Tremors present. Because of bradycardia propanol being discontinued which was being used for his tremors. Discussed with the patientwill start primidone for the same. Repeat UA and culture was sent on the antibiotic. Appetite much better. Patient does state he's been having urinary frequency. Active Medications Acetaminophen (Acetaminophen Tab 500 Mg Tab) 500 mg PO Q6HR PRN PRN Reason: Fever and/ or Pain Last Admin: 08/13/22 19:31 Dose: 500 mg Atorvastatin Calcium (Atorvastatin 20 Mg Tab) 20 mg PO HS [facility] Last Admin: 08/13/22 19:59 Dose: 20 mg Carbidopa/Levodopa (Carbidopa-Levodopa 25-100 Mg 1 Each Tab) 1 each PO TID [facility] Last Admin: 08/14/22 15:42 Dose: 1 each Ceftriaxone Sodium 2 gm/ (Sodium Chloride) 50 mls @ 100 mls/hr IVPB Q24HR [facility]; Protocol Last Admin: 08/14/22 10:20 Dose: 100 mls/hr Sodium Chloride (Saline 0.9%) 1,000 mls @ 125 mls/hr IV .Q8H [facility] Last Admin: 08/14/22 15:43 Dose: 125 mls/hr Levothyroxine Sodium (Levothyroxine 75 Mcg Tab) 75 mcg PO AC-BRKFST [facility] Last Admin: 08/14/22 06:23 Dose: 75 mcg Valbenazine Tosylate [Ingrezza] 40 Mg Capsule 40 mg PO DAILY [facility] Last Admin: 08/14/22 10:30 Dose: Not Given Primidone (Primidone 25 Mg Tab) 25 mg PO TID [facility] Last Admin: 08/14/22 15:43 Dose: 25 mg Tamsulosin HCl (Tamsulosin 0.4 Mg Cap.Er.24h) 0.4 mg PO HS [facility] Last Admin: 08/13/22 19:59 Dose: 0.4 mg Tramadol HCl (Tramadol 50 Mg Tab) 50 mg PO BID PRN PRN Reason: Pain Trihexyphenidyl HCl (Trihexyphenidyl 2 Mg Tab) 2 mg PO BID [facility] Last Admin: 08/14/22 10:20 Dose: 2 mg Past medical history to include: Hypertension, osteoporosis, hypothyroid, familial tremors, traumatic brain injury with chronic headaches, tinnitus, prostate versus bladder cancer, bipolar Social history: Lives with his . No smoking or alcohol. Physical examination: VITAL SIGNS: 97.5, 47, 14, 119/67, 96% room air GENERAL: BMI 29.6, laying in bed last anxious. EYES: Pupils equal. Conjunctiva normal. HEENT: External appearance of nose and ears normal, oral cavity grossly normal. NECK: JVD not raised; masses not palpable. HEART: First and second heart sounds are normal; no edema. LUNGS: Respiratory rate normal; clear to auscultation. ABDOMEN: Soft, nontender, liver spleen not palpable, no masses palpable. PSYCH: Alert and oriented x3; mood and affect less anxious. MUSCULOSKELETAL:No Clubbing/cyanosis;muscles-grossly intact NEUROLOGICAL: Cranial nerves grossly intact; no facial asymmetry, power and sensation grossly intact. Tremors INVESTIGATIONS, reviewed in the clinical context: White count 8.5 hemoglobin 15.6 platelets 119 sodium 136 potassium 3.9 creatinine 0.99 lactic acid 0.9 UA: Leukoesterase moderate, WBC 23, bacteria rare Influenza type [id number]-19: Noninjected CT brain: Atrophy EKG tracing personally reviewed by me-normal sinus rhythm Chest x-ray film personally reviewed by me-no infiltrates Assessment and plan: -Sepsis from underlying UTI causing delirium, high fever. Patient had a cystoscopy about a week ago.: Improving IV ceftriaxone. Urine culture ordered. Blood culture pending. -Acute UTI with cystitis causing sepsis from recent cystoscopy: Improving IV ceftriaxone -Familial tremor Propranolol was discontinued because of bradycardia. Start primidone 25 mg 3 times a day -BPH Flomax, Ditropan XL -Acute delirium with metabolic encephalopathy from sepsis on presentation: Better -Hypothyroid Synthroid 75 -Hyperlipidemia Zocor 40 mg -DO NOT RESUSCITATE Stop propranolol. Start primidone. Continue IV ceftriaxone. IV fluids. Has a patient sit up in a chair. Decrease IV fluids to 75 mL an hour
[2022-08-14] MEDS: TAMSULOSIN 0.4 MG CAP.ER.24H PO SCH (20:10)
[2022-08-14] MEDS: ATORVASTATIN 20 MG TAB PO SCH (20:10)
--- NOTE | 2022-08-14 21:30 | P.CONS ---
History of Present Illness - Reason for Consult Consult date: 08/14/22 - History of Present Illness Patient is a 66-year-old male with a past medical history significant for bladder cancer with a recent urological procedure patient was brought into the hospital for evaluation of not feeling well feeling weak and tired symptom has been going on for a day or 2 before presentation to the hospital patient on presentation to the hospital did have a fever of 100.7 F and subsequently sp iked a fever of 103 F patient not hypoxic or need for supplemental oxygen did have a normal white count kidney function was normal urine was positive influenza RSV and COVID testing was negative patient did have a chest x-ray no acute radiographic process patient was started on ceftriaxone infectious disease was consulted for further management of antibiotic therapy Patient currently denies any headache or URI symptoms denies any chest pain or shortness of breath occasional cough some nausea but no vomiting no abdominal pain no diarrhea Past Medical History Past Medical History: Cancer, Hypertension, Osteoarthritis (OA), Thyroid Disorder Additional Past Medical History / Comment(s): familial tremors; Traumatic Brain Injury with chronic headaches, tinnitus, difficulty with balance and concentration; Suicide Attempt, PROSTATE CANCER History of Any Multi-Drug Resistant Organisms: None Reported Past Surgical History: Appendectomy, Hernia Repair, Orthopedic Surgery, Tonsill ectomy Additional Past Surgical History / Comment(s): Vasectomy Past Anesthesia/Blood Transfusion Reactions: No Reported Reaction Past Psychological History: Anxiety, Bipolar, Depression Smoking Status: Never smoker Past Alcohol Use History: None Reported Past Drug Use History: None Reported - Past Family History Mother Family Medical History: Cancer Additional Family Medical History / Comment(s): bladder, suicide attempt. She at age 67 Father Family Medical History: CVA/TIA, Diabetes Mellitus, Hypertension Additional Family Medical History / Comment(s): stroke Brother(s) Additional Family Medical History / Comment(s): Patient has one brother with history of alcohol abuse. He has 1 brother that is from alcohol abuse. And one brother hung himself. Sister(s) Additional Family Medical History / Comment(s): He has 5 sisters. One sister with coronary artery disease. One or 2 have attempted suicide. Daughter(s) Additional Family Medical History / Comment(s): One daughter with bipolar disorder she is 30 years old. Son(s) Additional Family Medical History / Comment(s): One son that is 28 years old with bipolar disorder. Medications and Allergies Home Medications Medication Instructions Recorded Confirmed Type Levothyroxine Sodium [Synthroid] 75 mcg PO AC-BRKFST 08/12/22 08/12/22 History Oxybutynin Chloride [Ditropan XL] 10 mg PO DAILY 08/12/22 08/12/22 History Propranolol [Inderal] 40 mg PO BID 08/12/22 08/12/22 History Simvastatin [Zocor] 40 mg PO HS 08/12/22 08/12/22 History Tamsulosin HCl [Flomax] 0.4 mg PO HS 08/12/22 08/12/22 History Trihexyphenidyl [Artane] 2 mg PO BID 08/12/22 08/12/22 History Valbenazine Tosylate [Ingrezza] 40 mg PO DAILY 08/12/22 08/12/22 History traMADol HCL 50 mg PO BID PRN 08/12/22 08/12/22 History Allergies Allergy/AdvReac Type Severity Reaction Status Date / Time quetiapine fumarate AdvReac Confusion Verified 08/12/22 19:00 [From Seroquel] Physical Exam Vitals: Vital Signs Temp Pulse Pulse Resp BP Pulse Ox 08/14/22 10:15 98 F 45 L 16 119/64 96 08/14/22 03:28 97.8 F 51 L 16 116/64 94 L 08/13/22 23:16 99.3 F 51 L 15 107/60 95 08/13/22 20:31 99.8 F H 08/13/22 19:28 103 F H 75 20 120/62 92 L 08/13/22 15:36 83 08/13/22 15:26 99.5 F 83 21 142/65 92 L 08/13/22 15:25 99.5 F 83 21 142/65 92 L Intake and Output 08/13/22 08/14/22 08/14/22 22:59 06:59 14:59 Intake Total 540 Output Total 550 100 Balance -10 -100 Intake: Oral 540 Output: Urine 550 100 Other: Voiding Method External Catheter External Catheter External Catheter # Voids 300 Weight 85.729 kg Results CBC & Chem 7: 08/15/22 09:05 08/15/22 09:05 Labs: Abnormal Lab Results - Last 24 Hours (Table) 08/13/22 Range/Units 23:29 Urine Blood Trace H (Negative) Ur Leukocyte Esterase Trace H (Negative) Urine Bacteria Rare H (None) /hpf Microbiology - Last 24 Hours (Table) 08/12/22 18:12 Blood Culture - Preliminary Blood No Growth after 24 hours 08/12/22 18:12 Blood Culture - Preliminary Blood No Growth after 24 hours Assessment and Plan Plan: 1-Patient is a 66-year male with a history of bladder cancer presented to hospital with weakness did have a fever positive concerning for a urinary source likely from intra-abdominal to palpation chest x-ray was negative for pneumonia abdominal soft on clinical examination and there is no evidence of any cellulitis 2-we will check ultrasound of the kidney bladder area 3-wait for the culture to finalize 4-continue with Rocephin We will follow on clinical condition and cultures to further adjust medication if needed Thank you for this consultation we will follow the patient along with you Time with Patient: Greater than 30
[2022-08-15] MEDS: LEVOTHYROXINE 75 MCG TAB PO SCH (06:18)
[2022-08-15] MEDS: TRIHEXYPHENIDYL 2 MG TAB PO SCH ×2 (08:38→20:09)
[2022-08-15] MEDS: CARBIDOPA-LEVODOPA 25-100 MG 1 EACH TAB PO SCH ×2 (08:38→16:23)
[2022-08-15] MEDS: Valbenazine Tosylate [Ingrezza] 40 MG Capsule PO SCH (08:38)
[2022-08-15] MEDS: PRIMIDONE 25 MG TAB PO SCH (08:38)
--- NOTE | 2022-08-15 08:39 | US ---
EXAMINATION TYPE: US kidneys/renal and bladder DATE OF EXAM: 08/15/2022 COMPARISON: NONE CLINICAL INDICATION: Male, 66 years old with history of uti and bacteremia; EXAM MEASUREMENTS: Right Kidney: 10.2 x 6.4 x 5.9 cm Left Kidney: 12.2 x 6.0 x 5.8 cm Right Kidney: No hydronephrosis or masses seen, somewhat lobular contour. Left Kidney: No hydronephrosis or masses seen Bladder: wnl There is no evidence for hydronephrosis at this point in time. No nephrolithiasis is seen. No percy s are identified. The urinary bladder is not greatly distended. IMPRESSION: No hydronephrosis seen bilaterally.
[2022-08-15 10:10] LABS: African American GFR (CKD) >90 (>60 ml/min/1.73 sqM); Anion Gap 6 mmol/L; Blood Urea Nitrogen 12 mg/dL (9-20); Calcium 7.9 mg/dL (8.4-10.2); Carbon Dioxide 26 mmol/L (22-30); Chloride 107 mmol/L (98-107); Glucose 98 mg/dL (74-99); Non-African American GFR(CKD) >90 (>60 ml/min/1.73 sqM); Potassium 3.6 mmol/L (3.5-5.1); Sodium 139 mmol/L (137-145)
[2022-08-15 10:27] LABS: Basophils % (A) 0 %; Eosinophils # (A) 0.4 k/uL (0-0.7); Eosinophils % (A) 8 %; HCT 42.1 % (39.0-53.0); HGB 14.7 gm/dL (13.0-17.5); Hyperchromasia Slight; Lymphocytes # (A) 0.9 k/uL (1.0-4.8); Lymphocytes % (A) 16 %; MCH 30.7 pg (25.0-35.0); MCV 87.8 fL (80.0-100.0); Mean Platelet Volume 7.7; Monocytes # (A) 0.3 k/uL (0-1.0); Monocytes % (A) 6 %; Neutrophils # (A) 3.8 k/uL (1.3-7.7); Neutrophils % (A) 67 %; Platelet Count 130 k/uL (150-450); RBC 4.79 m/uL (4.30-5.90); RDW 13.1 % (11.5-15.5); WBC 5.7 k/uL (3.8-10.6)
--- NOTE | 2022-08-15 13:14 | P.PN ---
Subjective Progress Note Date: 08/15/22 The patient is seen at bedside and he feels drastically better today compared to yesterday. His tremor has improved drastically. But is seems the patient is on Sinemet as well as primidone. This event was started by me but the permanent was started by the primary team. According to the patient's a +0 over the phone she stated that he had tremors but he had been no diagnosis of Parkinson's disease in the past. He saw a different neurologist. He was never started on Sinemet in the past and was started on propranolol Objective - Vital Signs Vital signs: Vital Signs Temp 97.9 F 08/15/22 13:00 Pulse 62 08/15/22 13:00 Resp 18 08/15/22 13:00 BP 134/80 08/15/22 13:00 Pulse Ox 96 08/15/22 13:00 FiO2 Intake & Output 08/14/22 08/15/22 08/15/22 18:59 06:59 18:59 Intake Total 1468 236 Output Total 850 500 Balance 618 -500 236 Intake: Intake, IV Titration 1350 Amount Sodium Chloride 0.9% 1, 1350 000 ml @ 75 mls/hr IV . [id number] [facility] Rx#:[id number] Oral 118 236 Output: Urine 850 500 Other: Voiding Method External Catheter External Catheter External Catheter # Voids 300 - Exam GENERAL: The patient is lying in bed and is not in acute distress. NEUROLOGICAL: Higher mental function: The patient is awake, alert, oriented to self, place and time. Patient is following commands. No aphasia and no neglect. Cranial nerves: The pupils are round, equal and reactive to light and accommodation. Visual kirby are full to confrontation throughout. Extraocular movement is intact no nystagmus is noted. Facial sensation is normal to touch throughout. The facial strength is normal throughout. Tongue is midline and moved [id number] without any difficulty. No dysarthria is noted. Shoulder shrug is normal bilaterally. Motor: The strength is 5 over 5 throughout. Has mild tremors of bilateral upper but drastically better compared to yesterday. Cerebellum: Normal finger to nose heel to chin bilaterally. Sensation: Sensation is normal to touch throughout. Reflexes (right/left): 1+ throughout. Plantars are mute bilaterally. Some of the workup during his hospital visit consisted of: Heart Rate has been running between the 30s and 40s White blood cell has been within the normal limits. AST ALT is within normal limits as well as BUN/creatinine. The sodium was 136, serum glucose 114. Urinalysis is seems possible suggestive of underlying urinary tract infection EKG is reported as sinus rhythm with sinus arrhythmia. Normal EKG. Routine EEG is abnormal. The background slowing is suggestive of mild encephalpathy. Otherwise, there is no focal slowing, epileptiform discharges or seizure on the EEG. - Labs CBC & Chem 7: 08/15/22 09:05 08/15/22 09:05 Labs: Abnormal Lab Results - Last 24 Hours (Table) 08/15/22 08/15/22 Range/Units 09:05 09:05 Plt Count 130 L (150-450) k/uL Lymphocytes # 0.9 L (1.0-4.8) k/uL Calcium 7.9 L (8.4-10.2) mg/dL Microbiology - Last 24 Hours (Table) 08/12/22 18:12 Blood Culture - Preliminary Blood No Growth after 48 hours 08/12/22 18:12 Blood Culture - Preliminary Blood No Growth after 48 hours Assessment and Plan Assessment: Syncopal episode (reported to ED) and appears due to medication induced cause bradycardia (in 30's). Is on Propranolol. Parkinson's disease Possible acute UTI History prostate cancer History of bladder cancer who had recent procedure Plan: Pending 2D echo. I started the patient on Sinemet 25-100mg 1 tab tid on 08/14/22 and has drastic improvement in his tremor. I will stop Primidone that was started by primary team on 08/14/22 (primary was concerned about essential tremor). But his tremors are Parkinonism. Agree of holding Propranolol. Consulted the physical therapy and occupation therapy Defer the rest of the medical management to primary team Upon discharge, recommend the patient to follow-up with neurologist as outpatient within 1-2 weeks. Plan discussed with the patient and primary team. If patient continues to be feeling well and tremor are under control then no further neurological work-up. Dr. Hoffman will start neurology service tomorrow. Time with Patient: Less than 30
--- NOTE | 2022-08-15 16:03 | P.PN ---
Subjective Progress Note Date: 08/15/22 Principal diagnosis: Fever possible urinary source Patient is a 66-year-old male with a past medical history significant for bladder cancer with a recent urological procedure patient was brought into the hospital for evaluation of not feeling well feeling weak and tired , patient did have a fever positive UA concerning for complicated UTI On today's evaluation that is 08/15/2022, the patient denies having any fever or any chills, the patient is more awake and alert today he is breathing comfortably on room air no chest pain shortness of breath or cough no nausea no vomiting no abdominal pain or diarrhea Objective - Vital Signs Vital signs: Vital Signs Temp 97.9 F 08/15/22 13:00 Pulse 62 08/15/22 13:00 Resp 18 08/15/22 13:00 BP 134/80 08/15/22 13:00 Pulse Ox 96 08/15/22 13:00 FiO2 Intake & Output 08/14/22 08/15/22 08/15/22 18:59 06:59 18:59 Intake Total 1468 1791 Output Total 850 500 200 Balance 618 -500 1591 Intake: Intake, IV Titration 1350 1075 Amount Sodium Chloride 0.9% 1, 1350 975 000 ml @ 75 mls/hr IV . [id number] [facility] Rx#:[id number] cefTRIAXone 2 gm In 100 Sodium Chloride 0.9% 50 ml @ 100 mls/hr IVPB Q24HR [facility] Rx#:[id number] Oral 118 716 Output: Urine 850 500 200 Other: Voiding Method External Catheter External Catheter External Catheter # Voids 300 - Exam GENERAL DESCRIPTION: An elderly male lying in bed in no distress RESPIRATORY SYSTEM: Unlabored breathing , decreased breath sounds at bases HEART: S1 S2 regular rate and rhythm , ABDOMEN: Soft , no tenderness EXTREMITIES: No edema feet - Labs CBC & Chem 7: 08/15/22 09:05 08/15/22 09:05 Labs: Abnormal Lab Results - Last 24 Hours (Table) 08/15/22 08/15/22 Range/Units 09:05 09:05 Plt Count 130 L (150-450) k/uL Lymphocytes # 0.9 L (1.0-4.8) k/uL Calcium 7.9 L (8.4-10.2) mg/dL Microbiology - Last 24 Hours (Table) 08/12/22 18:12 Blood Culture - Preliminary Blood No Growth after 48 hours 08/12/22 18:12 Blood Culture - Preliminary Blood No Growth after 48 hours Assessment and Plan (1) Fever Current Visit: Yes Status: Acute Code(s): R50.9 - FEVER, UNSPECIFIED SNOMED Code(s): 692323167 Plan: 1-Patient is a 66-year male with a history of bladder cancer presented to hospital with weakness did have a fever positive concerning for a urinary source likely from intra-abdominal to palpation chest x-ray was negative for pn eumonia abdominal soft on clinical examination no evidence of any cellulitis 2- ultrasound of the kidney bladder area did not show any acute abnormality 3The patient fever has resolved culture so far negative patient to continue with Rocephin in view of clinical response and monitor clinical course closely
[2022-08-15] MEDS: SODIUM CHLORIDE 0.9% 1,000 ML IV SCH (16:24)
--- NOTE | 2022-08-15 17:11 | P.PN ---
Progress Note - Text Progress Note Date: 08/15/22 Chief Complaint: Weak and tired This is a pleasant 66-year-old patient, follows with Dr. Cuauhtemoc Harmon. Chronic stable medical conditions include hypertension, osteoporosis, hypothyroid, familial tremors, traumatic brain injury with chronic headaches, tinnitus, prostate cancer. Bipolar. Patient does not exactly remember why he is here. Please hold for to answer other questions. He can only tell in the ER that he was not feeling well. Tired. About a week ago he had cystoscopy and bladder cancer was removed. He is not sure how much. He was able to make urine on his own. Able to get around the house on his own. His appetite has been down. Feeling tired. Lives with his . Could not think of any obvious urine symptoms. He is not very clear about his answers. August 14: Delirium mainly resolved. Tremors present. Because of bradycardia propanol being discontinued which was being used for his tremors. Discussed with the patientwill start primidone for the same. Repeat UA and culture was sent on the antibiotic. Appetite much better. Patient does state he's been having urinary frequency. August 15: Discussed with Dr. Rosario from neurology. Patient has Parkinson's. Hence patient be started on Sinemet. Primidone was discontinued. Tremors b sharmila today. Appetite better. Active Medications Acetaminophen (Acetaminophen Tab 500 Mg Tab) 500 mg PO Q6HR PRN PRN Reason: Fever and/ or Pain Last Admin: 08/13/22 19:31 Dose: 500 mg Atorvastatin Calcium (Atorvastatin 20 Mg Tab) 20 mg PO HS [facility] Last Admin: 08/14/22 20:10 Dose: 20 mg Carbidopa/Levodopa (Carbidopa-Levodopa 25-100 Mg 1 Each Tab) 1 each PO TID [facility] Last Admin: 08/15/22 16:23 Dose: 1 each Ceftriaxone Sodium 2 gm/ (Sodium Chloride) 50 mls @ 100 mls/hr IVPB Q24HR [facility]; Protocol Last Admin: 08/15/22 08:37 Dose: 100 mls/hr Sodium Chloride (Saline 0.9%) 1,000 mls @ 75 mls/hr IV .[id number] [facility] Last Admin: 08/15/22 16:24 Dose: 75 mls/hr Levothyroxine Sodium (Levothyroxine 75 Mcg Tab) 75 mcg PO [id number] [facility] Last Admin: 08/15/22 06:18 Dose: 75 mcg Valbenazine Tosylate [Ingrezza] 40 Mg Capsule 40 mg PO DAILY [facility] Last Admin: 08/15/22 08:38 Dose: Not Given Tamsulosin HCl (Tamsulosin 0.4 Mg Cap.Er.24h) 0.4 mg PO HS [facility] Last Admin: 08/14/22 20:10 Dose: 0.4 mg Tramadol HCl (Tramadol 50 Mg Tab) 50 mg PO BID PRN PRN Reason: Pain Trihexyphenidyl HCl (Trihexyphenidyl 2 Mg Tab) 2 mg PO BID [facility] Last Admin: 08/15/22 08:38 Dose: 2 mg Past medical history to include: Hypertension, osteoporosis, hypothyroid, familial tremors, traumatic brain injury with chronic headaches, tinnitus, prostate versus bladder cancer, bipolar Social history: Lives with his . No smoking or alcohol. Physical examination: VITAL SIGNS: 97.9, 62, 18, 134/80, 96% room air GENERAL: BMI 29.6, comfortable. EYES: Pupils equal. Conjunctiva normal. HEENT: External appearance of nose and ears normal, oral cavity grossly normal. NECK: JVD not raised; masses not palpable. HEART: First and second heart sounds are normal; no edema. LUNGS: Respiratory rate normal; clear to auscultation. ABDOMEN: Soft, nontender, liver spleen not palpable, no masses palpable. PSYCH: Alert and oriented x3; mood and affect less anxious. MUSCULOSKELETAL:No Clubbing/cyanosis;muscles-grossly intact NEUROLOGICAL: Cranial nerves grossly intact; no facial asymmetry, power and sensation grossly intact. Tremors better INVESTIGATIONS, reviewed in the clinical context: August 15: White count 5.7 hemoglobin 14.7 platelets 1:30 sodium 139 potassium 3.6 creatinine 0.73 White count 8.5 hemoglobin 15.6 platelets 119 sodium 136 potassium 3.9 cr eatinine 0.99 lactic acid 0.9 UA: Leukoesterase moderate, WBC 23, bacteria rare Influenza type [id number]-19: Noninjected CT brain: Atrophy EKG tracing personally reviewed by me-normal sinus rhythm Chest x-ray film personally reviewed by me-no infiltrates Assessment and plan: -Sepsis from underlying UTI causing delirium, high fever. Patient had a cystoscopy about a week ago.: Improving IV ceftriaxone. Urine culture ordered. Blood culture pending. -Acute UTI with cystitis causing sepsis from recent cystoscopy: Improving IV ceftriaxone. Change to Augmentin -Familial tremor No familial tremor per neurology. Primidone discontinued. -Idiopathic Parkinson's disorder Sinemet -BPH Flomax, Ditropan XL -Acute delirium with metabolic encephalopathy from sepsis on presentation: Better -Hypothyroid Synthroid 75 -Hyperlipidemia Zocor 40 mg -DO NOT RESUSCITATE Started on Sinemet for neurology. Tremor better. Change to Augmentin to complete course for UTI. Hopefully discharge tomorrow. Increase activity.
[2022-08-15] MEDS: ATORVASTATIN 20 MG TAB PO SCH (20:08)
[2022-08-15] MEDS: AMOXIC-POT CLAV 875-125MG 1 EACH TAB PO SCH (20:08)
[2022-08-15] MEDS: TAMSULOSIN 0.4 MG CAP.ER.24H PO SCH (20:08)
[2022-08-16] MEDS: CARBIDOPA-LEVODOPA 25-100 MG 1 EACH TAB PO SCH ×2 (00:07→08:26)
[2022-08-16] MEDS: SODIUM CHLORIDE 0.9% 1,000 ML IV SCH (03:06)
[2022-08-16] MEDS: LEVOTHYROXINE 75 MCG TAB PO SCH (06:02)
[2022-08-16] MEDS: AMOXIC-POT CLAV 875-125MG 1 EACH TAB PO SCH (08:26)
[2022-08-16] MEDS: TRIHEXYPHENIDYL 2 MG TAB PO SCH (08:26)
[2022-08-16] MEDS: Valbenazine Tosylate [Ingrezza] 40 MG Capsule PO SCH (08:27)
[2022-08-16 08:29] VITALS: BP 136/79; PULSE 88; RESP 16; TEMP 98
[2022-08-16 09:49] LABS: Basophils % (A) 0 %; Eosinophils # (A) 0.4 k/uL (0-0.7); Eosinophils % (A) 7 %; HCT 43.7 % (39.0-53.0); Hyperchromasia Slight; Lymphocytes % (A) 18 %; MCH 31.4 pg (25.0-35.0); MCHC 36.7 g/dL (31.0-37.0); MCV 85.6 fL (80.0-100.0); Mean Platelet Volume 7.9; Monocytes # (A) 0.3 k/uL (0-1.0); Monocytes % (A) 6 %; Neutrophils # (A) 3.9 k/uL (1.3-7.7); Neutrophils % (A) 68 %; Platelet Count 122 k/uL (150-450); Poikilocytosis Slight; RDW 13.4 % (11.5-15.5); WBC 5.8 k/uL (3.8-10.6)
[2022-08-16 10:01] LABS: African American GFR (CKD) >90 (>60 ml/min/1.73 sqM); Anion Gap 7 mmol/L; Blood Urea Nitrogen 9 mg/dL (9-20); Calcium 8.3 mg/dL (8.4-10.2); Carbon Dioxide 23 mmol/L (22-30); Chloride 108 mmol/L (98-107); Glucose 125 mg/dL (74-99); Non-African American GFR(CKD) >90 (>60 ml/min/1.73 sqM); Potassium 3.6 mmol/L (3.5-5.1); Sodium 138 mmol/L (137-145)
--- NOTE | 2022-08-16 13:35 | P.PN ---
Subjective Progress Note Date: 08/16/22 Patient initially seen by Dr. Ambrose Rosario. Please refer to his note for details. Patient is a 66-year-old male with syncopal episode. Patient also has resting tremor and Dr. Rosario felt that he has Parkinson's and started him on Sinemet. At home he does not use any cane or walker. He walks fine. Patient states his handwriting is getting sloppy, but denies any changes in the size of the handwriting. Objective - Vital Signs Vital signs: Vital Signs Temp 98 F 08/16/22 08:00 Pulse 88 08/16/22 08:00 Resp 16 08/16/22 08:00 BP 136/79 08/16/22 08:00 Pulse Ox 95 08/16/22 08:00 FiO2 Intake & Output 08/15/22 08/16/22 08/16/22 18:59 06:59 18:59 Intake Total 1909 240 Output Total 700 Balance 1209 240 Intake: Intake, IV Titration 1075 Amount Sodium Chloride 0.9% 1, 975 000 ml @ 75 mls/hr IV . [id number] [facility] Rx#:[id number] cefTRIAXone 2 gm In 100 Sodium Chloride 0.9% 50 ml @ 100 mls/hr IVPB Q24HR [facility] Rx#:[id number] Oral 834 240 Output: Urine 700 Other: Voiding Method External Catheter External Catheter External Catheter # Voids 2 - Exam Patient's mental status, speech and language functions are normal. Patient knows it is July 2022 and that is in [facility] in [place] and name of the current president. Cranial nerves are normal. Muscle strength is normal. Patient has very mildly increased tone/cogwheeling noted. Does not appear obviously bradykinetic. Patient was noted to have intermittent tremors at rest of the left hand and occasionally of the right arm. Slight rhythmic tremor of the left thumb and right hand noticed of the outstretched hands. Patient has moderate tremors for [id number] testing bilaterally. No ataxia. Sensations equal. Patient was able to get up from bed without any difficulty. His stride was fairly normal. He was able to turn without difficulty. Did not have much Parkinsonian gait. Patient denies any changes in the size of his handwriting. He states getting just sloppy. - Labs CBC & Chem 7: 04/17/23 08:37 08/16/22 08:37 Labs: Abnormal Lab Results - Last 24 Hours (Table) 08/16/22 08/16/22 Range/Units 08:37 08:37 Plt Count 122 L (150-450) k/uL Chloride 108 H (98-107) mmol/L Glucose 125 H (74-99) mg/dL Calcium 8.3 L (8.4-10.2) mg/dL Microbiology - Last 24 Hours (Table) 08/12/22 18:12 Blood Culture - Preliminary Blood No Growth after 72 hours 08/12/22 18:12 Blood Culture - Preliminary Blood No Growth after 72 hours Assessment and Plan Assessment: Syncopal episode (reported to ED) and appears due to medication induced cause bradycardia (in 30's). Was on Propranolol. Tremors, unclear type. Has mixed features of parkinsonian and some essential or even metabolic component. Dr. Rosario felt it was Parkinson's disease. Patient has acute infection, with fever, which may be contributing to these tremors. Possible acute UTI History of prostate cancer History of bladder cancer who had recent procedure Plan: Pending 2D echo. Has been completed, results pending. Orthostatics checked was borderline. Supine blood pressure 160/71, sitting 163/76 and standing 145/74. Dr. Rosario has started the patient on Sinemet 25-100mg 1 tab tid on 08/14/22 and he mentioned that patient has drastic improvement in his tremor. He has stopped Primidone that was started by primary team on 08/14/22 (primary was concerned about essential tremor). Patient may benefit from a LILIA scan as an outpatient. Agree of holding Propranolol. Check TSH, B12, folate. Consulted the physical therapy and occupation therapy Defer the rest of the medical management to primary team Upon discharge, recommend the patient to follow-up with neurologist as outpatient within 1-2 weeks. Addendum: 08/17/2022: 2-D echo revealed normal left ventricular systolic function. EF is 50-55%. Grade 2 diastolic dysfunction. Mild to moderate MR. Normal left atrial size. TSH normal 2.25 B12 197 Folate 4.30 Patient has B12, folate deficiency. Need to be started on B12 and folate replacement.
--- NOTE | 2022-08-16 18:18 | CA ---
Transthoracic Echo Report Name: Jose Xiao Age: 66 Gender: M : 1955 Exam Date: 08/13/2022 13:06 Exam Location: [facility] Ht (in): 67 Wt (lb): 189 Ordering Physician: Ambrose Rosario MD Attending/Referring Phys: Sales Administration Specialist Pal Argueta RDCS Procedure CPT: Indications: Syncope Cardiac Hx: Parkinson Disease Technical Quality: Fair Contrast 1: Total Dose (mL): Contrast 2: Total Dose (mL): MEASUREMENTS (Male / Female) Normal Values 2D ECHO LV Diastolic Diameter PLAX 4.5 cm 4.2 - 5.9 / 3.9 - 5.3 cm LV Systolic Diameter PLAX 3.5 cm LV Fractional Shortening PLAX 22.8 % IVS Diastolic Thickness 1.0 cm 0.6 - 1.0 / 0.6 - 0.9 cm IVS Systolic Thickness 1.3 cm LVPW Diastolic Thickness 1.1 cm 0.6 - 1.0 / 0.6 - 0.9 cm LVPW Systolic Thickness 1.8 cm LV Relative Wall Thickness 0.5 RV Internal Dim ED PLAX 3.4 cm LVOT Diameter 2.2 cm LA Systolic Diameter LX 3.5 cm 3.0 - 4.0 / 2.7 - 3.8 cm LV Diastolic Volume MOD BP 100.9 cm??? 67 - 155 / 56 - 104 cm??? LV Systolic Volume MOD BP 49.9 cm??? 22 - 58 / 19 - 49 cm??? LV Ejection Fraction MOD BP 50.5 % >= 55 % LV Stroke Volume MOD BP 51.0 cm??? LV Diastolic Volume MOD 4C 106.3 cm??? LV Systolic Volume MOD 4C 42.9 cm??? LV Ejection Fraction MOD 4C 59.6 % LV Stroke Volume MOD 4C 63.4 cm??? LV Diastolic Length 4C 8.7 cm LV Systolic Length 4C 7.1 cm LV Diastolic Volume MOD 2C 90.9 cm??? LV Systolic Volume MOD 2C 54.3 cm??? LV Ejection Fraction MOD 2C 40.2 % LV Stroke Volume MOD 2C 36.6 cm??? LV Diastolic Length 2C 8.3 cm LV Systolic Length 2C 7.6 cm Ascending Aorta Diameter 2.9 cm M-MODE Aortic Root Diameter MM 3.2 cm LA Systolic Diameter MM 3.9 cm LA Ao Ratio MM 1.2 MV E Point Septal Separation 3.0 cm AV Cusp Separation MM 1.3 cm DOPPLER AV Peak Velocity 172.8 cm/s AV Peak Gradient 11.9 mmHg LVOT Peak Velocity 137.8 cm/s LVOT Peak Gradient 7.6 mmHg AV Area Cont Eq pk 3.1 cm??? MV Peak Velocity 89.2 cm/s MV Peak Gradient 3.2 mmHg MV Mean Velocity 54.3 cm/s MV Mean Gradient 1.4 mmHg MV Velocity Time Integral 23.3 cm MV Deceleration Ocean 551.0 cm/s??? MR Peak Velocity 510.0 cm/s MR Peak Gradient 104.1 mmHg MR Mean Velocity 436.3 cm/s MR Mean Gradient 81.3 mmHg MR Velocity Time Integral 148.9 cm Mitral E Point Velocity 103.5 cm/s Mitral A Point Velocity 81.5 cm/s Mitral E to A Ratio 1.3 MV Deceleration Time 187.8 ms MV E' Velocity 9.3 cm/s Mitral E to MV E' Ratio 11.1 TR Peak Velocity 257.6 cm/s TR Peak Gradient 26.5 mmHg Right Ventricular Systolic Press 36.5 mmHg PV Peak Velocity 104.2 cm/s PV Peak Gradient 4.3 mmHg FINDINGS Left Ventricle Left ventricular ejection fraction is estimated at 50-55 %. Grade 2 diastolic dysfunction. Right Ventricle Normal right ventricular size and function. RVSP_ 37 mm Hg. Right Atrium Normal right atrial size. Left Atrium Normal left atrial size. Mitral Valve [id number] mitral regurgitation. Aortic Valve Trileaflet aortic valve. Tricuspid Valve Mild tricuspid regurgitation. Pulmonic Valve Pulmonic valve not well visualized. Pericardium Normal pericardium. No pericardial effusion. Aorta Normal size aortic root and proximal ascending aorta. CONCLUSIONS Normal LV systolic function Mild to moderate mitral regurgitation Previewed by: Dr. Dada Ball MD (Electronically Signed) Final Date: 16 August 2022 18:17
--- NOTE | 2022-08-16 22:09 | P.DS ---
Providers Date of admission: 08/12/22 20:58 Expected date of discharge: 08/16/22 Attending physician: Miguel Alfred Consults: 08/12/22 20:58 Consult Physician Urgent Consulting Provider: Ambrose Rosario Consult Reason/Comments: Syncope Do you want consulting provider notified?: Yes 08/13/22 19:25 Consult Physician Routine Consulting Provider: Dante Bazzi Consult Reason/Comments: sepsis Do you want consulting provider notified?: Yes Primary care physician: [facility]: Chief Complaint: Weak and tired This is a pleasant 66-year-old patient, follows with Dr. Cuauhtemoc Harmon. Chronic stable medical conditions include hypertension, osteoporosis, hypothyroid, familial tremors, traumatic brain injury with chronic headaches, tinnitus, prostate cancer. Bipolar. Patient does not exactly remember why he is here. Please hold for to answer other questions. He can only tell in the ER that he was not feeling well. Tired. About a week ago he had cystoscopy and bladder cancer was removed. He is not sure how much. He was able to make urine on his own. Able to get around the house on his own. His appetite has been down. Feeling tired. Lives with his . Could not think of any obvious urine symptoms. He is not very clear about his answers. August 14: Delirium mainly resolved. Tremors present. Because of bradycardia pr opanol being discontinued which was being used for his tremors. Discussed with the patientwill start primidone for the same. Repeat UA and culture was sent on the antibiotic. Appetite much better. Patient does state he's been having urinary frequency. August 15: Discussed with Dr. Rosario from neurology. Patient has Parkinson's. Hence patient be started on Sinemet. Primidone was discontinued. Tremors better today. Appetite better. August 16: Tremors much improved with Sinemet. Complete 4 more days of Augmentin. Discussed with patient. Eating well Past medical history to include: Hypertension, osteoporosis, hypothyroid, familial tremors, traumatic brain injury with chronic headaches, tinnitus, prostate versus bladder cancer, bipolar Social history: Lives with his . No smoking or alcohol. Physical examination: VITAL SIGNS: 98, 88, 16, 1 36 x 79, 95% room air GENERAL: BMI 29.6, comfortable. EYES: Pupils equal. Conjunctiva normal. HEENT: External appearance of nose and ears normal, oral cavity grossly normal. NECK: JVD not raised; masses not palpable. HEART: First and second heart sounds are normal; no edema. LUNGS: Respiratory rate normal; clear to auscultation. ABDOMEN: Soft, nontender, liver spleen not palpable, no masses palpable. PSYCH: Alert and oriented x3; mood and affect less anxious. MUSCULOSKELETAL:No Clubbing/cyanosis;muscles-grossly intact NEUROLOGICAL: Cranial nerves grossly intact; no facial asymmetry, power and sensation grossly intact. Tremors improved INVESTIGATIONS, reviewed in the clinical context: August 16: White count 5.8 hemoglobin 16 platelets 122 potassium 3.6 creatinine 0.74. Procalcitonin 0.16 TSH 2.2 August 15: White count 5.7 hemoglobin 14.7 platelets 1:30 sodium 139 potassium 3.6 creatinine 0.73 White count 8.5 hemoglobin 15.6 platelets 119 sodium 136 potassium 3.9 creatinine 0.99 lactic acid 0.9 UA: Leukoesterase moderate, WBC 23, bacteria rare Influenza type [id number]: Noninjected CT brain: Atrophy EKG tracing personally reviewed by me-normal sinus rhythm Chest x-ray film personally reviewed by me-no infiltrates Assessment and plan: -Sepsis from underlying UTI causing delirium, high fever. Patient had a cystoscopy about a week ago.: Much improved IV ceftriaxone. Urine culture ordered. Blood culture negative. 4 more days of Augmentin -Acute UTI with cystitis causing sepsis from recent cystoscopy: Better IV ceftriaxone. Change to Augmentin -No familial tremor per neurology. Propranolol discontinued -Idiopathic Parkinson's disorder: Better Sinemet -BPH Flomax, Ditropan XL -Acute delirium with metabolic encephalopathy from sepsis on presentation: Better -Hypothyroid Synthroid 75 -Hyperlipidemia Zocor 40 mg -DO NOT RESUSCITATE Disposition: Home Plan - Discharge Summary New Discharge Prescriptions: New Amoxic-Pot Clav 875-125Mg [Augmentin 875-125] 1 each PO Q12HR #8 tab Atorvastatin [Lipitor] 20 mg PO HS #30 tab Carbidopa-Levodopa 25-100 mg [Sinemet 25-100 mg] 1 each PO TID #90 tab Acetaminophen Tab [Tylenol] 500 mg PO Q6HR PRN tab PRN Reason: Fever And/ Or Pain Continue traMADol HCL 50 mg PO BID PRN PRN Reason: Pain Tamsulosin HCl [Flomax] 0.4 mg PO HS Trihexyphenidyl [Artane] 2 mg PO BID Levothyroxine Sodium [Synthroid] 75 mcg PO [facility] Valbenazine Tosylate [Ingrezza] 40 mg PO DAILY Oxybutynin Chloride [Ditropan XL] 10 mg PO DAILY Discontinued Propranolol [Inderal] 40 mg PO BID Simvastatin [Zocor] 40 mg PO HS Discharge Medication List Levothyroxine Sodium [Synthroid] 75 mcg PO AC-BRKFST 08/12/22 [History] Oxybutynin Chloride [Ditropan XL] 10 mg PO DAILY 08/12/22 [History] Tamsulosin HCl [Flomax] 0.4 mg PO HS 08/12/22 [History] Trihexyphenidyl [Artane] 2 mg PO BID 08/12/22 [History] Valbenazine Tosylate [Ingrezza] 40 mg PO DAILY 08/12/22 [History] traMADol HCL 50 mg PO BID PRN 08/12/22 [History] Acetaminophen Tab [Tylenol] 500 mg PO Q6HR PRN tab 08/16/22 [Rx] Amoxic-Pot Clav 875-125Mg [Augmentin 875-125] 1 each PO Q12HR #8 tab 08/16/22 [Rx] Atorvastatin [Lipitor] 20 mg PO HS #30 tab 08/16/22 [Rx] Carbidopa-Levodopa 25-100 mg [Sinemet 25-100 mg] 1 each PO TID #90 tab 08/16/22 [Rx] Follow up Appointment(s)/Referral(s): Cuauhtemoc Harmon MD [Primary Care Provider] - 1-2 days Mimi Cheney MD [REFERRING] - 1 Week Patient Instructions/Handouts: Urinary Tract Infection in Men (DC), Syncope (DC) Discharge Disposition: HOME SELF-CARE
== END 2022-08-16 14:22 | disposition home or self-care (01) | DRG 862 ==
LOC: EC 15:58 → 3SCARD 20:58
PROVIDERS: ADMIT Hospitalist; ATTEND Hospitalist
DX: T81.44XA Sepsis following a procedure, initial encounter (principal); G93.41 Metabolic encephalopathy; R65.20 Severe sepsis without septic shock; F05 Delirium due to known physiological condition; N30.80 Other cystitis without hematuria; E03.9 Hypothyroidism, unspecified; E53.8 Deficiency of other specified B group vitamins; E78.5 Hyperlipidemia, unspecified; F41.9 Anxiety disorder, unspecified; F31.9 Bipolar disorder, unspecified; R00.1 Bradycardia, unspecified; H93.19 Tinnitus, unspecified ear; G20 Parkinson's disease; I10 Essential (primary) hypertension; T44.7X5A Adverse effect of beta-adrenoreceptor antagonists, initial encounter; M81.0 Age-related osteoporosis without current pathological fracture; N30.90 Cystitis, unspecified without hematuria; N40.0 Benign prostatic hyperplasia without lower urinary tract symptoms; N41.9 Inflammatory disease of prostate, unspecified; Z66 Do not resuscitate; Z20.822 Contact with and (suspected) exposure to COVID-19; Z79.890 Hormone replacement therapy; Z79.899 Other long term (current) drug therapy; Z82.3 Family history of stroke; Z82.49 Family history of ischemic heart disease and other diseases of the circulatory system; Z85.46 Personal history of malignant neoplasm of prostate; Z85.51 Personal history of malignant neoplasm of bladder; Z87.820 Personal history of traumatic brain injury; Z91.51 Personal history of suicidal behavior; Z81.8 Family history of other mental and behavioral disorders
CPT/HCPCS: 36415; 70450; 71046; 76770; 80048; 80053; 81001; 82607; 82746; 83605; 84145; 84443; 85025; 85610; 85730; 87040; 87636; 93306; 95816; 96361; 96365; 99285

== ENCOUNTER → 2023-05-13 | Outpatient (CLI) | payer MEDICARE ==
--- NOTE | 2023-05-16 09:07 | NM ---
EXAMINATION TYPE: NM DatScan Brain SPECT DATE OF EXAM: 05/13/2023 COMPARISON: NONE CLINICAL INDICATION: Male, 67 years old with history of G25.2; TECHNIQUE: 10 drops of Lugol's solution was administered 1 hour prior to injection as a thyroid bloc iván agent. After the administration of 167.6 mCi I-123 Ioflupane DaTscan. Images obtained 4 hours post injection. SPECT images of the brain were acquired with axial and coronal reconstructions. FINDINGS: There is generalized increased background activity. The computer indicates decreased Z score on the r ight at - 1.87. In addition, on the right, images show slight blunting of the normal, shaped appearan ce of the left striate him. IMPRESSION: Given increased background activity, abnormal Z score on the right, and slight blunting of the striat um on the left, unable to exclude changes related to Parkinson's disease or a parkinsonian syndrome. Follow-up can be considered.
== END | disposition home or self-care (01) ==
LOC: RADNMMAIN 10:11
PROVIDERS: ATTEND Psychiatry & Neurology Neurology
DX: G25.2 Other specified forms of tremor (principal); G93.89 Other specified disorders of brain
CPT/HCPCS: 78803; A9584